=== PATIENT | female | born 1995 | race Caucasian/White ===

== ENCOUNTER 2022-01-20 14:12 | Emergency (ER) | payer SELFPAY ==
[2022-01-20 14:27] VITALS: BP 144/88; PULSE 100; RESP 16; TEMP 36.9; O2SAT 100
--- NOTE | 2022-01-20 14:34 | ED.SKABFB ---
HPI - Skin/Abscess/Foreign Bdy General Chief complaint: Skin/Abscess/Foreign Body Stated complaint: bump behind head tender and swollen Time Seen by Provider: 01/20/22 14:35 Source: patient Mode of arrival: ambulatory Limitations: no limitations History of Present Illness HPI narrative: Ms. Gordon is a 26-year-old female patient presenting to the clinic today with complaints of a tender bump to the back of her head. She reports this has been going on for a few days. States that there was a big scab over the area and she has since soaks out and try to remove the scab. Denies any discharge coming from the wound however had noticed some sticky substance over the scab like she may have gotten some pus out. Reports that the head is very tender and that she also has some lymphadenopathy. She denies any fever or chills Related Data Home Medications Medication Instructions Recorded Confirmed dextroamphetamine-amphetamine 1 tablet PO DAILY 01/20/22 01/20/22 escitalopram oxalate 20 mg PO DAILY 01/20/22 01/20/22 Allergies Allergy/AdvReac Type Severity Reaction Status Date / Time latex Allergy Mild Rash Verified 01/20/22 14:40 nickel Allergy Mild Rash Verified 01/20/22 14:40 Review of Systems Review of Systems: Pertinent positives per HPI. Patient denies any fever, chills, rash, headache, visual changes, dizziness, cough, runny nose, sore throat, shortness of breath, chest pain, palpitations, nausea, vomiting, diarrhea, constipation, abdominal pain, or any urinary issues. PMFSH Comments At the time of my signature, I reviewed and agree with the nursing past medical, surgical, social, and family history. There is no relevant family history pertinent to the patient complaint. Exam Narrative: General: Well-developed, well nourished, in no apparent distress Head: Normocephalic, atraumatic, indurated infected wound measuring 1 cm x 1 and half centimeter. No discharge with attempt of expression. Tender to palpation. Eyes: Pupils equally round and reactive to light bilaterally, EOM intact, sclera and conjunctive clear, no discharge, lids normal Ears: TMs intact and clear, ear canals clear, no drainage, grossly hearing normal. Nose: Nares patent, no discharge, no inflammation, no sinus tenderness. Mouth: Oropharynx without lesions or masses, good dentition, MMM. Neck: Supple, trachea midline, positive enlargement of left posterior occipital and cervical nodes, no thyroid masses or goiter palpable. Cardio: Regular rate and rhythm, s1 and s2 normal, no murmur appreciated. Resp: Clear to auscultation bilaterally anteriorly and posteriorly, no rhonchi, rales, wheezing or rubs Course Course Emergency Course: Portions of this record may have been created with voice recognition software. Level of Care: Express Care Visit Vital Signs Vital signs: Vital Signs Temperature 36.9 C 01/20/22 14:27 Pulse Rate 100 01/20/22 14:27 Respiratory Rate 16 01/20/22 14:27 Blood Pressure 144/88 H 01/20/22 14:27 Pulse Oximetry 100 01/20/22 14:27 Temperature 36.9 C 01/20/22 14:27 Pulse Rate 100 01/20/22 14:27 Respiratory Rate 16 01/20/22 14:27 Blood Pressure 144/88 H 01/20/22 14:27 Pulse Oximetry 100 01/20/22 14:27 Vital signs reviewed MDM - Skin/Abscess/Foreign Bdy MDM Narrative Medical decision making narrative: The time of assessment patient has a open wound to the back left of her head. No obvious discharge however there is some induration and redness to this area without fluctuance. Also has lymphadenopathy to the occipital and posterior cervical node on the left side I will treat for a skin infection. Prescription for Bactrim and mupirocin cream was sent to the pharmacy. Supportive measures was discussed with patient she voiced understanding Differential Diagnosis Differential diagnosis: Likely abscess of skin or subcutaneous tissue, cellulitis and insect bites Discharge Plan Discharge Clinical Impressi
== END 2022-01-20 14:50 | disposition home or self-care (01) ==
PROVIDERS: Emergency Provider Nurse Practitioner Family; PCP Family Medicine
DX: L02.811 Cutaneous abscess of head [any part, except face] (principal); F90.9 Attention-deficit hyperactivity disorder, unspecified type; F32.A Depression, unspecified; Z86.19 Personal history of other infectious and parasitic diseases
CPT/HCPCS: 99213; G0463